=== PATIENT | male | born 1960 | race Caucasian/White ===

== ENCOUNTER 2020-08-18 07:37 | Emergency (ER) | payer OTHER ==
[2020-08-18 08:25] LABS: BASOPHIL 1.4 % (0-2); EOSINOPHIL 1.2 % (0-5); HCT 47.2 % (42.0-52.0); HGB 16.5 g/dl (13.2-18.0); LYMPHOCYTE 15.1 % (15-48); MCH 31.4 pg (25.0-31.0); MCV 89.9 fL (78.0-100.0); MONOCYTE 5.1 % (0-12); MPV 10.7 fL (6.0-9.5); NEUTROPHIL 76.9 % (41-80); NRBC 0; PLT 256 K/uL (150-400); RBC 5.25 M/uL (4.70-6.00); RDW 13.2 % (11.5-14.0); WBC 7.7 K/uL (4.0-10.5)
[2020-08-18 08:29] LABS: INR 1.02 (0.9-1.2); PROTHROMBIN TIME 12.7 SECONDS (11.4-13.6); PTT 27.4 SECONDS (22.2-34.7)
[2020-08-18 09:04] LABS: ALBUMIN 3.8 g/dL (3.4-5.0); BUN/CREAT RATIO (CALC) 18.2 RATIO; CREATININE 0.99 mg/dL (0.67-1.17); GLOBULIN (CALCULATION) 3.4 g/dL; MAGNESIUM 1.8 mg/dL (1.8-2.4); POTASSIUM 4.3 mmol/L (3.5-5.1); TOTAL PROTEIN 7.2 g/dL (6.4-8.2)
[2020-08-18 09:05] LABS: PRO-BNP 37 pg/mL (<125)
[2020-08-18 10:01] LABS: BILIRUBIN NEGATIVE (NEGATIVE); BLOOD TRACE-INTACT Ery/uL (NEGATIVE); CLARITY CLEAR (CLEAR); COLOR YELLOW (YELLOW); GLUCOSE (U) NORMAL (NORMAL); LEUKOCYTES NEGATIVE Leu/uL (NEGATIVE); NITRITE NEGATIVE (NEGATIVE); PROTEIN NEGATIVE (NEGATIVE); SPECIFIC GRAVITY 1.025 (1.001-1.030); UROBILINOGEN 0.2 mg/dL (0.2-1.0)
[2020-08-18 10:13] LABS: BACTERIA TRACE; MUCOUS TRACE; URINARY RBC RARE
== END 2020-08-18 16:30 | disposition other institution (70) ==
LOC: FER 07:37
PROVIDERS: Emergency Medicine
DX: G54.4 Lumbosacral root disorders, not elsewhere classified (principal); M21.371 Foot drop, right foot; R33.9 Retention of urine, unspecified; F10.20 Alcohol dependence, uncomplicated; R29.701 NIHSS score 1; I10 Essential (primary) hypertension; Y90.8 Blood alcohol level of 240 mg/100 ml or more; Z20.822 Contact with and (suspected) exposure to COVID-19
CPT/HCPCS: 36415; 70450; 70553; 71045; 72156; 72157; 72158; 80053; 81001; 83735; 83880; 84145; 84443; 84484; 85025; 85610; 85730; 93005; 96365; A9579; G0480; J3411; J3475; J7030; U0002